=== PATIENT | female | born 1940 | race Caucasian/White ===

== ENCOUNTER 2018-03-11 10:01 | Outpatient (CLI) | payer MEDICARE, OTHER ==
[2018-03-11] VITALS (21 sets, daily range): BP systolic 114–155; BP diastolic 63–81
== END 2018-03-11 23:59 | disposition home or self-care (01) ==
LOC: CARD DIAG 10:01
PROVIDERS: ATTEND Internal Medicine Cardiovascular Disease
DX: R42 Dizziness and giddiness (principal)
CPT/HCPCS: 93660

== ENCOUNTER 2019-07-17 18:53 | Inpatient (IN) | payer MEDICARE, OTHER ==
[~2019-07-17] VITALS: Ht 147.3 cm; Wt 62.3 kg
[2019-07-17] MEDS ORDERED: normal saline 1000ml 1,000 ML IV ONE (19:25)
[2019-07-17 19:28] LABS: BASOPHILS # (AUTO) 0.1 X10'3 (0-0.2); BASOPHILS % (AUTO) 1.1 % (0-1); EOSINOPHILS # (AUTO) 0.1 X10'3 (0-0.9); HEMATOCRIT 32.6 % (35.0-45.0); HEMOGLOBIN 11.1 g/dl (12.0-16.0); LYMPHOCYTES % (AUTO) 31.9 % (21-51); MEAN CORPUSCULAR HEMOGLOBIN 34.1 PG (27.0-31.0); MEAN CORPUSCULAR HGB CONC 34.1 g/dL (33.0-36.5); MEAN PLATELET VOLUME 10.2 FL (7.4-10.4); MONOCYTES # (AUTO) 0.4 X10'3 (0-0.9); MONOCYTES % (AUTO) 4.2 % (2-12); NEUTROPHILS # (AUTO) 5.8 X10'3 (1.8-7.7); NEUTROPHILS % (AUTO) 61.8 % (42-75); PLATELET COUNT 230 X10'3 (140-440); RED BLOOD COUNT 3.26 X10'6 (4.20-5.60); RED CELL DISTRIBUTION WIDTH 15.4 % (11.5-14.5); WHITE BLOOD COUNT 9.4 X10'3 (4.5-11.0)
--- NOTE | 2019-07-17 19:30 | NUR ---
Spoke to Dr. Alvarado about protonix or tranexamic acid. At this time she does not believe they are necessary.
[2019-07-17 19:42] LABS: ALANINE AMINOTRANSFERASE 19 U/L (12-78); ALBUMIN 3.4 G/DL (3.4-5.0); ALBUMIN/GLOBULIN RATIO 1.1 (1.1-1.5); ALKALINE PHOSPHATASE 68 IU/L (46-116); ANION GAP 9 (8-16); ASPARTATE AMINO TRANSFERASE 19 U/L (10-37); BILIRUBIN,TOTAL 0.2 MG/DL (0.1-1.0); BLOOD UREA NITROGEN 17 MG/DL (7-18); BUN/CREATININE RATIO 17.2 (6.6-38.0); CALCIUM 8.6 MG/DL (8.5-10.1); CHLORIDE 108 MMOL/L (99-107); CREATININE 0.99 MG/DL (0.40-0.90); GLUCOSE 148 MG/DL (70-104); POTASSIUM 3.5 MMOL/L (3.5-5.1); SODIUM 141 MMOL/L (135-145); TOTAL CARBON DIOXIDE 24.5 MMOL/L (24-32); TOTAL PROTEIN 6.4 G/DL (6.4-8.2); eGFR 54 ML/MIN
[2019-07-17] MEDS ORDERED: iohexol 350MG/ML 100ml bottle IV ONE (19:55)
--- NOTE | 2019-07-17 20:13 | NUR ---
Spoke to Dr. Alvarado about patient's labs. She states that she wants to hold the blood transfusion for now and will repeat h&h in 4 hours to re-evaluate the need for a transfusion.
[2019-07-17] MEDS ORDERED: acetaminophen 325mg tablet PO PRN (21:20)
[2019-07-17] MEDS ORDERED: magnesium hydroxide 30ml (MOM) UD suspension PO PRN ×2 (21:20→23:15)
[2019-07-17] MEDS ORDERED: mag hydrox/Alum hydrox/simeth 30ml oral suspension PO PRN (21:20)
[2019-07-17] MEDS ORDERED: PEG 3350/Na sulf,bicarb,Cl/KCl oral sol 4 liter bottle PO ONE (21:20)
[2019-07-17] MEDS ORDERED: ondansetron/PF 4mg/2ml inj IV PRN (21:20)
--- NOTE | 2019-07-17 21:30 | NUR ---
DISCUSSED PT'S ONGOING DIZZINESS WHEN USING BSC. ORDER FOR FC RECEIVED.
--- NOTE | 2019-07-17 21:35 | NUR ---
Patient was assisted up to bedside commode at her request. Prior to transfer she stated that she felt strong enough to do so. She was able to get to the commode with minimal assistance. When on the commode she began to have a bowel movement and became dizzy and then lost conciousness while sitting on the commode. Patient was transferred from the commode to the bed with assistance from additional staff. Patient regained conciousness immediately after laying in the bed. Blood pressure in the 90s systolic. Blood transfusion initiated and Dr. Vigil notified.
[2019-07-17 21:36] VITALS: BP 94/44
[2019-07-17 21:40] LABS: BASOPHILS # (AUTO) 0.1 X10'3 (0-0.2); BASOPHILS % (AUTO) 0.8 % (0-1); EOSINOPHILS # (AUTO) 0.6 X10'3 (0-0.9); EOSINOPHILS % (AUTO) 4.7 % (0-6); HEMATOCRIT 24.7 % (35.0-45.0); HEMOGLOBIN 8.4 g/dl (12.0-16.0); LYMPHOCYTES # (AUTO) 1.2 X10'3 (1.1-4.8); LYMPHOCYTES % (AUTO) 8.7 % (21-51); MEAN CORPUSCULAR HEMOGLOBIN 34.2 PG (27.0-31.0); MEAN CORPUSCULAR HGB CONC 33.8 g/dL (33.0-36.5); MEAN CORPUSCULAR VOLUME 101.1 FL (78-98); MEAN PLATELET VOLUME 10.3 FL (7.4-10.4); MONOCYTES # (AUTO) 0.3 X10'3 (0-0.9); MONOCYTES % (AUTO) 1.9 % (2-12); NEUTROPHILS # (AUTO) 11.3 X10'3 (1.8-7.7); NEUTROPHILS % (AUTO) 83.9 % (42-75); PLATELET COUNT 170 X10'3 (140-440); RED BLOOD COUNT 2.45 X10'6 (4.20-5.60); RED CELL DISTRIBUTION WIDTH 15.6 % (11.5-14.5); WHITE BLOOD COUNT 13.5 X10'3 (4.5-11.0)
[2019-07-17] MEDS ORDERED: TRANEXAMIC ACID IN NACL,ISO-OS 100 ML IV ONE (21:40)
[2019-07-17 21:51] VITALS: BP 90/50
[2019-07-17] MEDS: normal saline 1000ml 1,000 ML IV SCH (22:16)
--- NOTE | 2019-07-17 22:20 | NUR ---
September PULL UP HAND at bedside evaluating the patient.
--- NOTE | 2019-07-17 23:10 | NUR ---
Patient arrived to floor, transferred to hospital bed without difficulty. at bedside. Patient alert/oriented x4, offers no complaints at this time. Vitals WNL. 2 RN skin check performed.
[2019-07-17] MEDS ORDERED: bisacodyl 10mg suppository rectal RC PRN (23:15)
[2019-07-17 23:17] LABS: TROPONIN I < 0.04 NG/ML (0.0-0.05)
[2019-07-17 23:20] VITALS: BP 97/50
[2019-07-17 23:26] VITALS: BP 97/50
[2019-07-17] MEDS ORDERED: pneumococcal 23-VAL P-sac vacc 25 mcg/0.5ml vial IMVAC ONE (23:45)
[2019-07-18] VITALS (37 sets, daily range): BP systolic 93–129; BP diastolic 35–69
--- NOTE | 2019-07-18 00:25 | NUR ---
Attempted to end the blood transfusion I started in the ED and accidently input the incorrect end time. The first blood transfusion ended at 2251 on 07/17/19. End transfusion vital signs documented on EMR.
[2019-07-18] MEDS: pantoprazole 40MG/NS 100ML BAG 100 ML IV SCH ×5 (01:08→21:00)
--- NOTE | 2019-07-18 02:26 | NUR ---
Patient stated she had to have BM, patient placed on bedpan. Patient reported feeling "very weak", then vomited large amount of emesis that was not able to be measured. Patient had 400ccs bloody stool. BP at this time 92/45. Patient has had about half of golytely drink. Zofran administered for nausea. Will continue to monitor patient closely.
[2019-07-18 03:30] LABS: MEAN CORPUSCULAR HEMOGLOBIN 32.8 PG (27.0-31.0); MEAN CORPUSCULAR HGB CONC 33.8 g/dL (33.0-36.5); MEAN CORPUSCULAR VOLUME 96.9 FL (78-98); MEAN PLATELET VOLUME 9.4 FL (7.4-10.4); PLATELET COUNT 231 X10'3 (140-440); RED BLOOD COUNT 2.13 X10'6 (4.20-5.60); RED CELL DISTRIBUTION WIDTH 19.6 % (11.5-14.5)
[2019-07-18 03:35] LABS: HEMATOCRIT 20.7 % (35.0-45.0)
[2019-07-18 04:11] LABS: CLARITY,URINE SLIGHTLY CLOUDY (Clear); COLOR,URINE YELLOW (Yellow); GLUCOSE, URINE NEGATIVE (Neg); KETONES,URINE NEGATIVE (Neg); LEUKOCYTE ESTERASE ,URINE NEGATIVE (Neg); NITRITES, URINE NEGATIVE (Neg); OCCULT BLOOD,URINE TRACE-INTACT (Neg); PROTEIN,URINE NEGATIVE (Neg); UROBILINOGEN,URINE 0.2 E.U/dL (0.2-1.0)
[2019-07-18 04:25] LABS: UA COLLECTION TYPE FOLEY CATH
[2019-07-18 04:27] LABS: BACTERIA,URINE FEW /HPF (Neg); RBC,URINE 0-2 /HPF (0-2); SQUAMOUS EPITHELIAL CELL,UR FEW /LPF (FEW); TRANSITIONAL EPI CELLS,URINE FEW /HPF
[2019-07-18 04:28] LABS: WBC CLUMPS,URINE FEW /HPF (NEGATIVE)
--- NOTE | 2019-07-18 06:17 | NUR ---
Problems reprioritized. Patient report given, questions answered & plan of care reviewed with Amanda SCHWARTZ.
--- NOTE | 2019-07-18 06:20 | NUR ---
Patient in room ICU 2042. I have received report from LANA Sanchez and had the opportunity to ask questions and assume patient care.
[2019-07-18 07:08] LABS: PARTIAL THROMBOPLASTIN TIME 24 SECONDS (22-32)
[2019-07-18] MEDS: normal saline 1000ml 1,000 ML IV SCH ×2 (07:18→15:44)
[2019-07-18 07:44] LABS: EOSINOPHILS # (AUTO) 0.3 X10'3 (0-0.9); HEMATOCRIT 24.5 % (35.0-45.0); HEMOGLOBIN 8.3 g/dl (12.0-16.0); LYMPHOCYTES # (AUTO) 0.9 X10'3 (1.1-4.8); MONOCYTES # (AUTO) 0.2 X10'3 (0-0.9); WHITE BLOOD COUNT 6.4 X10'3 (4.5-11.0)
[2019-07-18 07:46] LABS: BASOPHILS % (AUTO) 0.2 % (0-1); EOSINOPHILS % (AUTO) 4.3 % (0-6); LYMPHOCYTES % (AUTO) 13.9 % (21-51); MEAN CORPUSCULAR HEMOGLOBIN 31.4 PG (27.0-31.0); MEAN CORPUSCULAR HGB CONC 33.9 g/dL (33.0-36.5); MEAN CORPUSCULAR VOLUME 92.9 FL (78-98); MEAN PLATELET VOLUME 9.2 FL (7.4-10.4); MONOCYTES % (AUTO) 2.7 % (2-12); NEUTROPHILS # (AUTO) 5.1 X10'3 (1.8-7.7); NEUTROPHILS % (AUTO) 78.9 % (42-75); PLATELET COUNT 192 X10'3 (140-440); RED BLOOD COUNT 2.64 X10'6 (4.20-5.60); RED CELL DISTRIBUTION WIDTH 18.2 % (11.5-14.5)
[2019-07-18 07:51] LABS: ALBUMIN 2.5 G/DL (3.4-5.0); ANION GAP 6 (8-16); BLOOD UREA NITROGEN 14 MG/DL (7-18); BUN/CREATININE RATIO 23.7 (6.6-38.0); CALCIUM 6.7 MG/DL (8.5-10.1); CHLORIDE 112 MMOL/L (99-107); CREATININE 0.59 MG/DL (0.40-0.90); GLUCOSE 107 MG/DL (70-104); POTASSIUM 4.1 MMOL/L (3.5-5.1); SODIUM 144 MMOL/L (135-145); TOTAL CARBON DIOXIDE 26.3 MMOL/L (24-32); eGFR > 90 ML/MIN
[2019-07-18] MEDS: docusate sod 100mg capsule PO SCH ×2 (08:00→19:31)
[2019-07-18] MEDS ORDERED: FLU VACC QS2019-20 36MOS UP/PF 60 MCG/0.5 ML SYRINGE IMVAC ONE (10:00)
[2019-07-18] MEDS ORDERED: ATOR20TA PO (10:40)
[2019-07-18] MEDS ORDERED: NO HOME MEDS (11:12)
--- NOTE | 2019-07-18 12:47 | NUR ---
Paged GI lab re pt's case status to provide update to pt's family.
[2019-07-18 14:36] LABS: MEAN CORPUSCULAR HEMOGLOBIN 31.9 PG (27.0-31.0); MEAN CORPUSCULAR HGB CONC 34.3 g/dL (33.0-36.5); MEAN CORPUSCULAR VOLUME 92.9 FL (78-98); MEAN PLATELET VOLUME 9.3 FL (7.4-10.4); PLATELET COUNT 162 X10'3 (140-440); RED BLOOD COUNT 2.17 X10'6 (4.20-5.60); RED CELL DISTRIBUTION WIDTH 18.4 % (11.5-14.5); WHITE BLOOD COUNT 6.5 X10'3 (4.5-11.0)
[2019-07-18 14:38] LABS: HEMOGLOBIN 6.9 g/dl (12.0-16.0)
[2019-07-18 14:39] LABS: HEMATOCRIT 20.2 % (35.0-45.0)
--- NOTE | 2019-07-18 14:45 | NUR ---
Dr. Zuniga notified via telephone of critical H&H. Order received to transfuse 2 units [facility] now.
--- NOTE | 2019-07-18 15:03 | NUR ---
Malnutrition consult. patient presents s/p colonoscopy and polyp removal with rectal bleeding. Received PRBC in ED. No current PO intake as patient is on clear liquid diet. Per H&P patient reports drinking at least one beer a day and family reports it is at least two beers and sometimes wine. Patient not available at bedside for bedside interview and assessment by RD, will follow up with patient tomorrow. Addendum: 07/18/19 at [address] Amended: Links added.
[2019-07-18] MEDS ORDERED: fentaNYL/PF 50MCG/1 ML 2ML syringe ONE (15:35)
[2019-07-18] MEDS ORDERED: epiNEPHrine 0.1mg/ml 10ml syringe ONE (15:36)
[2019-07-18] MEDS ORDERED: MIDAZolam 5mg/5ml vial ONE (15:36)
--- NOTE | 2019-07-18 18:29 | NUR ---
Problems reprioritized. Patient report given, questions answered & plan of care reviewed with LANA Sanchez.
--- NOTE | 2019-07-18 18:30 | NUR ---
Patient in room ICU 2042. I have received report from Amanda SCHWARTZ and had the opportunity to ask questions and assume patient care. Patient resting in bed comfortably with eyes closed, offers no complaints at this time. Vitals WNL. Will continue to monitor patient.
[2019-07-18 19:00] LABS: BASOPHILS # (AUTO) 0.1 X10'3 (0-0.2); BASOPHILS % (AUTO) 1.2 % (0-1); EOSINOPHILS # (AUTO) 0.3 X10'3 (0-0.9); EOSINOPHILS % (AUTO) 4.1 % (0-6); HEMATOCRIT 27.5 % (35.0-45.0); HEMOGLOBIN 9.3 g/dl (12.0-16.0); LYMPHOCYTES # (AUTO) 1.9 X10'3 (1.1-4.8); LYMPHOCYTES % (AUTO) 27.9 % (21-51); MEAN CORPUSCULAR HEMOGLOBIN 30.9 PG (27.0-31.0); MEAN CORPUSCULAR HGB CONC 33.7 g/dL (33.0-36.5); MEAN CORPUSCULAR VOLUME 91.7 FL (78-98); MEAN PLATELET VOLUME 9.5 FL (7.4-10.4); MONOCYTES # (AUTO) 0.3 X10'3 (0-0.9); MONOCYTES % (AUTO) 4.4 % (2-12); NEUTROPHILS # (AUTO) 4.3 X10'3 (1.8-7.7); NEUTROPHILS % (AUTO) 62.4 % (42-75); PLATELET COUNT 144 X10'3 (140-440); RED CELL DISTRIBUTION WIDTH 17.6 % (11.5-14.5); WHITE BLOOD COUNT 6.9 X10'3 (4.5-11.0)
[2019-07-18 23:03] LABS: HEMATOCRIT 26.2 % (35.0-45.0); MEAN CORPUSCULAR HEMOGLOBIN 31.2 PG (27.0-31.0); MEAN CORPUSCULAR HGB CONC 34.5 g/dL (33.0-36.5); MEAN CORPUSCULAR VOLUME 90.4 FL (78-98); MEAN PLATELET VOLUME 9.1 FL (7.4-10.4); PLATELET COUNT 140 X10'3 (140-440); RED CELL DISTRIBUTION WIDTH 16.9 % (11.5-14.5); WHITE BLOOD COUNT 6.2 X10'3 (4.5-11.0)
[2019-07-19] VITALS (15 sets, daily range): BP systolic 99–137; BP diastolic 45–81
[2019-07-19] MEDS: pantoprazole 40MG/NS 100ML BAG 100 ML IV SCH ×3 (01:00→07:00)
[2019-07-19] MEDS: normal saline 1000ml 1,000 ML IV SCH (02:05)
[2019-07-19 05:26] LABS: ALBUMIN 2.3 G/DL (3.4-5.0); ANION GAP 5 (8-16); BLOOD UREA NITROGEN 5 MG/DL (7-18); BUN/CREATININE RATIO 9.1 (6.6-38.0); CALCIUM 6.7 MG/DL (8.5-10.1); CHLORIDE 113 MMOL/L (99-107); CREATININE 0.55 MG/DL (0.40-0.90); GLUCOSE 90 MG/DL (70-104); POTASSIUM 3.1 MMOL/L (3.5-5.1); SODIUM 144 MMOL/L (135-145); TOTAL CARBON DIOXIDE 25.9 MMOL/L (24-32); eGFR > 90 ML/MIN
[2019-07-19 05:38] LABS: HEMOGLOBIN 9.4 g/dl (12.0-16.0)
[2019-07-19 05:41] LABS: HEMATOCRIT 26.7 % (35.0-45.0); MEAN CORPUSCULAR HEMOGLOBIN 31.7 PG (27.0-31.0); MEAN CORPUSCULAR HGB CONC 35.2 g/dL (33.0-36.5); MEAN CORPUSCULAR VOLUME 90.2 FL (78-98); MEAN PLATELET VOLUME 9.7 FL (7.4-10.4); PLATELET COUNT 146 X10'3 (140-440); RED BLOOD COUNT 2.96 X10'6 (4.20-5.60); RED CELL DISTRIBUTION WIDTH 17.3 % (11.5-14.5)
[2019-07-19] MEDS ORDERED: potassium CL 10mEq/100ml bag 100 ML IV PRN (06:10)
[2019-07-19] MEDS ORDERED: potassium Cl 20 mEq SR tablet PO PRN (06:10)
--- NOTE | 2019-07-19 06:22 | NUR ---
Problems reprioritized. Patient report given, questions answered & plan of care reviewed with Geetha SCHWARTZ.
[2019-07-19] MEDS: K and/or MAG REPLACEMENT MC SCH (07:38)
[2019-07-19] MEDS: docusate sod 100mg capsule PO SCH ×2 (08:00→19:57)
[2019-07-19] MEDS: potassium Cl 20 mEq SR tablet PO PRN ×3 (08:47→18:19)
[2019-07-19 08:49] LABS: TOTAL CELLS COUNTED 100
[2019-07-19 08:51] LABS: ANISOCYTOSIS 1+; PLATELET ESTIMATE NORMAL; SMUDGE CELLS 2+
--- NOTE | 2019-07-19 13:40 | NUR ---
Malnutrition consult. patient presents s/p colonoscopy and polyp removal with rectal bleeding. Received PRBC in ED. No current PO intake as patient is on clear liquid diet. Per H&P patient reports drinking at least one beer a day and family reports it is at least two beers and sometimes wine. Visited patient at bedside, she appears well nourished. Reports UBW of 140 lbs, current weight 136 lbs, reports great appetite however has not been able to eat much d/t clear liquid diet and three colonoscopys this month. Pt eager for diet advancement and has no concerns for weight. No malnutrition at this time. Addendum: 07/19/19 at [address] Amended: Links added.
--- NOTE | 2019-07-19 17:06 | NUR ---
pt transferred from ICU to PCU rm 3020A. This RN followed pt and will continue to care for pt until shift change. Pt oriented to room and connected to tele.
--- NOTE | 2019-07-19 18:44 | NUR ---
Patient in room PCU 3027. I have received report from Geetha SCHWARTZ and had the opportunity to ask questions and assume patient care.
[2019-07-20 02:00] VITALS: BP 116/51
[2019-07-20 05:09] LABS: BASOPHILS # (AUTO) 0.2 X10'3 (0-0.2); BASOPHILS % (AUTO) 3.2 % (0-1); EOSINOPHILS % (AUTO) 0.3 % (0-6); HEMATOCRIT 27.4 % (35.0-45.0); HEMOGLOBIN 9.5 g/dl (12.0-16.0); LYMPHOCYTES # (AUTO) 1.7 X10'3 (1.1-4.8); LYMPHOCYTES % (AUTO) 28.2 % (21-51); MEAN CORPUSCULAR HEMOGLOBIN 31.3 PG (27.0-31.0); MEAN CORPUSCULAR HGB CONC 34.6 g/dL (33.0-36.5); MEAN CORPUSCULAR VOLUME 90.5 FL (78-98); MEAN PLATELET VOLUME 8.8 FL (7.4-10.4); MONOCYTES # (AUTO) 0.3 X10'3 (0-0.9); MONOCYTES % (AUTO) 4.9 % (2-12); NEUTROPHILS # (AUTO) 3.8 X10'3 (1.8-7.7); NEUTROPHILS % (AUTO) 63.4 % (42-75); PLATELET COUNT 161 X10'3 (140-440); RED BLOOD COUNT 3.02 X10'6 (4.20-5.60); RED CELL DISTRIBUTION WIDTH 16.9 % (11.5-14.5)
[2019-07-20 05:20] LABS: ALBUMIN 2.3 G/DL (3.4-5.0); ANION GAP 5 (8-16); BLOOD UREA NITROGEN 2 MG/DL (7-18); BUN/CREATININE RATIO 3.8 (6.6-38.0); CALCIUM 7.4 MG/DL (8.5-10.1); CHLORIDE 112 MMOL/L (99-107); CREATININE 0.53 MG/DL (0.40-0.90); GLUCOSE 90 MG/DL (70-104); POTASSIUM 3.5 MMOL/L (3.5-5.1); SODIUM 144 MMOL/L (135-145); TOTAL CARBON DIOXIDE 27.3 MMOL/L (24-32); eGFR > 90 ML/MIN
[2019-07-20 06:00] VITALS: BP 128/57
--- NOTE | 2019-07-20 06:25 | NUR ---
Patient in room PCU 3027. I have received report from Grecia SCHWARTZ and had the opportunity to ask questions and assume patient care.
--- NOTE | 2019-07-20 06:31 | NUR ---
Problems reprioritized. Patient report given, questions answered & plan of care reviewed with Dave SCHWARTZ.
[2019-07-20] MEDS: pantoprazole 40mg Tablet.DR PO SCH (07:34)
[2019-07-20] MEDS: docusate sod 100mg capsule PO SCH ×2 (07:34→19:38)
[2019-07-20] MEDS: K and/or MAG REPLACEMENT MC SCH (08:00)
[2019-07-20 11:00] VITALS: BP 123/50
[2019-07-20 15:00] VITALS: BP 127/60
--- NOTE | 2019-07-20 18:20 | NUR ---
Problems reprioritized. Patient report given, questions answered & plan of care reviewed with Alexis RN.
--- NOTE | 2019-07-20 18:45 | NUR ---
Patient in room PCU 3027. I have received report from Dave Ford RN and had the opportunity to ask questions and assume patient care.
[2019-07-20 19:00] VITALS: BP 127/44
[2019-07-20 23:00] VITALS: BP 129/42
[2019-07-21 03:00] VITALS: BP 119/49
[2019-07-21 05:36] LABS: BASOPHILS # (AUTO) 0.2 X10'3 (0-0.2); EOSINOPHILS # (AUTO) 0.1 X10'3 (0-0.9); HEMOGLOBIN 9.3 g/dl (12.0-16.0); LYMPHOCYTES # (AUTO) 1.4 X10'3 (1.1-4.8); LYMPHOCYTES % (AUTO) 28.3 % (21-51); MEAN PLATELET VOLUME 9.8 FL (7.4-10.4); MONOCYTES # (AUTO) 0.2 X10'3 (0-0.9); WHITE BLOOD COUNT 5.1 X10'3 (4.5-11.0)
[2019-07-21 05:38] LABS: BASOPHILS % (AUTO) 3.1 % (0-1); EOSINOPHILS % (AUTO) 1.6 % (0-6); HEMATOCRIT 27.1 % (35.0-45.0); MEAN CORPUSCULAR HEMOGLOBIN 31.2 PG (27.0-31.0); MEAN CORPUSCULAR HGB CONC 34.5 g/dL (33.0-36.5); MEAN CORPUSCULAR VOLUME 90.5 FL (78-98); NEUTROPHILS # (AUTO) 3.2 X10'3 (1.8-7.7); PLATELET COUNT 167 X10'3 (140-440); RED BLOOD COUNT 2.99 X10'6 (4.20-5.60); RED CELL DISTRIBUTION WIDTH 16.7 % (11.5-14.5)
[2019-07-21 06:00] VITALS: BP 157/55
[2019-07-21 06:07] LABS: ALBUMIN 2.4 G/DL (3.4-5.0); ANION GAP 5 (8-16); BLOOD UREA NITROGEN 2 MG/DL (7-18); BUN/CREATININE RATIO 3.8 (6.6-38.0); CALCIUM 7.7 MG/DL (8.5-10.1); CHLORIDE 111 MMOL/L (99-107); CREATININE 0.52 MG/DL (0.40-0.90); GLUCOSE 89 MG/DL (70-104); POTASSIUM 3.4 MMOL/L (3.5-5.1); SODIUM 145 MMOL/L (135-145); TOTAL CARBON DIOXIDE 29.2 MMOL/L (24-32); eGFR > 90 ML/MIN
--- NOTE | 2019-07-21 06:49 | NUR ---
Problems reprioritized. Patient report given, questions answered & plan of care reviewed with Dexter Benitez RN.
--- NOTE | 2019-07-21 06:49 | NUR ---
Patient in room PCU 3027. I have received report from LANA Espinoza and had the opportunity to ask questions and assume patient care.
[2019-07-21] MEDS: K and/or MAG REPLACEMENT MC SCH (07:22)
[2019-07-21] MEDS: pantoprazole 40mg Tablet.DR PO SCH (07:25)
[2019-07-21] MEDS: docusate sod 100mg capsule PO SCH (07:25)
[2019-07-21] MEDS: potassium Cl 20 mEq SR tablet PO PRN ×2 (07:25→12:31)
[2019-07-21 11:00] VITALS: BP 123/69
[2019-07-21] MEDS ORDERED: PANT40TA4 PO (15:17)
[2019-07-21] MEDS ORDERED: POTA20TA10 PO (15:17)
[2019-07-21] MEDS ORDERED: FERR324T4 PO (15:17)
--- NOTE | 2019-07-21 16:13 | NUR ---
Patient discharged. PIV taken off and tele returned. Flu vaccine given. Refused Pnuemonia vaccine. Meds called into [facility] on [address]. Educated on meds, anemia, and follow-up. Patient left with belongings and spouse gave patient a ride home. Medicare DC rights and DC papers signed. Wristband cut off and blood bank band. Stable for DC per MD.
[2019-07-22 08:13] LABS: CANCER ANTIGEN 125 12.4 U/mL (0.0-38.1); CARCINOEMBRYONIC ANTIGEN 1.9 ng/mL (0.0-4.7)
[2019-07-22] MEDS ORDERED: FLU VACC QS 2019-20 (6 MOS UP) 60 MCG/0.5 ML VIAL IMVAC ONE (10:00)
== END 2019-07-21 16:05 | disposition home or self-care (01) | DRG 920 ==
LOC: ER 18:55 → EDBEDREQTM 22:24 → EDBEDREQSVC 22:24 → ICU 2S 23:33 → CMPBEDREQ 07-18 19:49 → PCU 3S 07-19 16:02
PROVIDERS: ADMIT Hospitalist; ATTEND Internal Medicine
PROC: B32T1ZZ Computerized Tomography (CT Scan) of Left Pulmonary Artery using Low Osmolar Contrast (ICD-10-PCS; 2019-07-17)
PROC: 30233R1 Transfusion of Nonautologous Platelets into Peripheral Vein, Percutaneous Approach (ICD-10-PCS; 2019-07-17)
PROC: 30233N1 Transfusion of Nonautologous Red Blood Cells into Peripheral Vein, Percutaneous Approach (ICD-10-PCS; 2019-07-17)
PROC: B3201ZZ Computerized Tomography (CT Scan) of Thoracic Aorta using Low Osmolar Contrast (ICD-10-PCS; 2019-07-17)
PROC: B32S1ZZ Computerized Tomography (CT Scan) of Right Pulmonary Artery using Low Osmolar Contrast (ICD-10-PCS; 2019-07-17)
PROC: B4201ZZ Computerized Tomography (CT Scan) of Abdominal Aorta using Low Osmolar Contrast (ICD-10-PCS; 2019-07-17)
PROC: B4241ZZ Computerized Tomography (CT Scan) of Superior Mesenteric Artery using Low Osmolar Contrast (ICD-10-PCS; 2019-07-17)
PROC: B4281ZZ Computerized Tomography (CT Scan) of Bilateral Renal Arteries using Low Osmolar Contrast (ICD-10-PCS; 2019-07-17)
PROC: B42C1ZZ Computerized Tomography (CT Scan) of Pelvic Arteries using Low Osmolar Contrast (ICD-10-PCS; 2019-07-17)
PROC: B4211ZZ Computerized Tomography (CT Scan) of Celiac Artery using Low Osmolar Contrast (ICD-10-PCS; 2019-07-17)
PROC: 0W3P8ZZ Control Bleeding in Gastrointestinal Tract, Via Natural or Artificial Opening Endoscopic (ICD-10-PCS; principal; 2019-07-18)
PROC: 30233N1 Transfusion of Nonautologous Red Blood Cells into Peripheral Vein, Percutaneous Approach (ICD-10-PCS; 2019-07-18)
PROC: 3E02340 Introduction of Influenza Vaccine into Muscle, Percutaneous Approach (ICD-10-PCS; 2019-07-21)
DX: K91.840 Postprocedural hemorrhage of a digestive system organ or structure following a digestive system procedure (principal); D62 Acute posthemorrhagic anemia; K21.0 Gastro-esophageal reflux disease with esophagitis; M19.90 Unspecified osteoarthritis, unspecified site; Y83.8 Other surgical procedures as the cause of abnormal reaction of the patient, or of later complication, without mention of misadventure at the time of the procedure; K57.30 Diverticulosis of large intestine without perforation or abscess without bleeding; K62.1 Rectal polyp; Z23 Encounter for immunization; Z90.710 Acquired absence of both cervix and uterus; Y92.89 Other specified places as the place of occurrence of the external cause; Z79.899 Other long term (current) drug therapy
CPT/HCPCS: 36415; 45385; 74177; 80048; 80053; 81001; 82378; 83605; 84439; 84443; 84484; 85025; 85027; 85384; 85610; 85730; 86301; 86304; 86885; 86900; 86901; 86920; 87081; 87088; 93005; 96365; 99152; 99153; 99291; C9113; G0378; J0171; J2250; J2405; J3010; P9016; P9035; Q2037; Q9967

== ENCOUNTER 2019-07-23 17:42 | Emergency (ER) | payer MEDICARE, OTHER ==
[~2019-07-23] VITALS: Ht 147.3 cm; Wt 62.3 kg
[~2019-07-23 17:42] MED LIST: FERR324T4 PO; PANT40TA4 PO; POTA20TA10 PO
[2019-07-23 19:27] LABS: ALANINE AMINOTRANSFERASE 18 U/L (12-78); ALBUMIN 3.3 G/DL (3.4-5.0); ALKALINE PHOSPHATASE 74 IU/L (46-116); ANION GAP 6 (8-16); ASPARTATE AMINO TRANSFERASE 14 U/L (10-37); BILIRUBIN,TOTAL 0.3 MG/DL (0.1-1.0); BLOOD UREA NITROGEN 4 MG/DL (7-18); BUN/CREATININE RATIO 6.3 (6.6-38.0); CALCIUM 8.4 MG/DL (8.5-10.1); CHLORIDE 109 MMOL/L (99-107); CREATININE 0.63 MG/DL (0.40-0.90); GLUCOSE 81 MG/DL (70-104); POTASSIUM 4.4 MMOL/L (3.5-5.1); SODIUM 145 MMOL/L (135-145); TOTAL CARBON DIOXIDE 30.3 MMOL/L (24-32); TOTAL PROTEIN 6.5 G/DL (6.4-8.2); eGFR > 90 ML/MIN
[2019-07-23 20:19] LABS: BASOPHILS # (AUTO) 0.2 X10'3 (0-0.2); EOSINOPHILS # (AUTO) 0.3 X10'3 (0-0.9); EOSINOPHILS % (AUTO) 6.1 % (0-6); HEMATOCRIT 31.4 % (35.0-45.0); HEMOGLOBIN 10.7 g/dl (12.0-16.0); LYMPHOCYTES # (AUTO) 1.6 X10'3 (1.1-4.8); MEAN CORPUSCULAR HEMOGLOBIN 31.8 PG (27.0-31.0); MEAN CORPUSCULAR HGB CONC 34.1 g/dL (33.0-36.5); MEAN CORPUSCULAR VOLUME 93.1 FL (78-98); MEAN PLATELET VOLUME 9.8 FL (7.4-10.4); MONOCYTES # (AUTO) 0.3 X10'3 (0-0.9); MONOCYTES % (AUTO) 5.4 % (2-12); NEUTROPHILS # (AUTO) 3.2 X10'3 (1.8-7.7); NEUTROPHILS % (AUTO) 56.5 % (42-75); PLATELET COUNT 206 X10'3 (140-440); RED BLOOD COUNT 3.37 X10'6 (4.20-5.60); RED CELL DISTRIBUTION WIDTH 16.7 % (11.5-14.5); WHITE BLOOD COUNT 5.6 X10'3 (4.5-11.0)
[2019-07-23 20:26] LABS: ANISOCYTOSIS 1+; PLATELET ESTIMATE NORMAL; TOTAL CELLS COUNTED 100
[2019-07-23 20:27] LABS: LARGE PLATELETS MODERATE
[2019-07-23 20:44] VITALS: BP 122/62
== END 2019-07-23 21:11 | disposition home or self-care (01) ==
LOC: ER 17:43
DX: K92.1 Melena (principal); M19.90 Unspecified osteoarthritis, unspecified site; F10.99 Alcohol use, unspecified with unspecified alcohol-induced disorder; Z90.710 Acquired absence of both cervix and uterus; Z98.890 Other specified postprocedural states; Z79.899 Other long term (current) drug therapy; Y90.9 Presence of alcohol in blood, level not specified
CPT/HCPCS: 36415; 80053; 85025; 85610; 99283

== ENCOUNTER 2021-09-13 18:31 | Emergency (ER) | payer MEDICARE, OTHER ==
[~2021-09-13] VITALS: Ht 147.3 cm; Wt 60.0 kg
[~2021-09-13 18:31] MED LIST changes: -PANT40TA4 PO; +PANT40TA54 PO; +POTA-197 PO; -POTA20TA10 PO
[2021-09-13 18:57] VITALS: BP 111/58
[2021-09-13] MEDS ORDERED: LIDOcaine 5% patch TP STA (19:09)
[2021-09-13] MEDS ORDERED: ondansetron 4mg rapidly disintigrating tab PO ONE (19:10)
[2021-09-13] MEDS ORDERED: HYDROcodone/acetaminophen 10/325mg tab PO ONE (19:10)
[2021-09-13] MEDS ORDERED: ONDA4TAB6 PO (19:16)
[2021-09-13] MEDS ORDERED: HYDR-3972 PO (19:16)
== END 2021-09-13 21:09 | disposition home or self-care (01) ==
LOC: ER 18:32
DX: M54.50 Low back pain, unspecified (principal); M48.54XA Collapsed vertebra, not elsewhere classified, thoracic region, initial encounter for fracture; M19.90 Unspecified osteoarthritis, unspecified site; Z90.710 Acquired absence of both cervix and uterus; Z98.890 Other specified postprocedural states; Z72.89 Other problems related to lifestyle; Z79.899 Other long term (current) drug therapy; W18.30XA Fall on same level, unspecified, initial encounter; Y93.89 Activity, other specified; Y92.89 Other specified places as the place of occurrence of the external cause; Y99.8 Other external cause status
CPT/HCPCS: 72131; 99284

== ENCOUNTER 2021-10-25 06:17 | Emergency (ER) | payer MEDICARE, OTHER ==
[~2021-10-25] VITALS: Ht 177.8 cm; Wt 61.0 kg
[~2021-10-25 06:17] MED LIST changes: +ONDA4TAB6 PO
[2021-10-25 06:38] VITALS: BP 102/62
[2021-10-25] MEDS ORDERED: ondansetron 4mg rapidly disintigrating tab PO ONE (07:10)
[2021-10-25] MEDS ORDERED: normal saline 1000ml 1,000 ML IV ONE (08:20)
[2021-10-25 08:54] LABS: BASOPHILS # (AUTO) 0.1 X10'3 (0-0.2); EOSINOPHILS # (AUTO) 0.1 X10'3 (0-0.9); LYMPHOCYTES # (AUTO) 0.9 X10'3 (1.1-4.8); MONOCYTES # (AUTO) 0.1 X10'3 (0-0.9)
[2021-10-25 08:56] LABS: BASOPHILS % (AUTO) 1.8 % (0-1); EOSINOPHILS % (AUTO) 2.6 % (0-6); HEMATOCRIT 35.8 % (35.0-45.0); HEMOGLOBIN 12.2 g/dl (12.0-16.0); LYMPHOCYTES % (AUTO) 17.6 % (21-51); MEAN CORPUSCULAR HEMOGLOBIN 35.6 PG (27.0-31.0); MEAN CORPUSCULAR HGB CONC 34.2 g/dL (33.0-36.5); MEAN CORPUSCULAR VOLUME 104.2 FL (78-98); MEAN PLATELET VOLUME 9.9 FL (7.4-10.4); MONOCYTES % (AUTO) 2.5 % (2-12); NEUTROPHILS # (AUTO) 3.8 X10'3 (1.8-7.7); NEUTROPHILS % (AUTO) 75.5 % (42-75); PLATELET COUNT 202 X10'3 (140-440); RED BLOOD COUNT 3.44 X10'6 (4.20-5.60); RED CELL DISTRIBUTION WIDTH 15.7 % (11.5-14.5); WHITE BLOOD COUNT 5.1 X10'3 (4.5-11.0)
[2021-10-25 09:06] LABS: ALANINE AMINOTRANSFERASE 21 U/L (12-78); ALBUMIN 3.8 G/DL (3.4-5.0); ALBUMIN/GLOBULIN RATIO 1.2 (1.1-1.5); ALKALINE PHOSPHATASE 74 IU/L (46-116); ANION GAP 8 (8-16); ASPARTATE AMINO TRANSFERASE 18 U/L (10-37); BILIRUBIN,TOTAL 0.4 MG/DL (0.1-1.0); BLOOD UREA NITROGEN 12 MG/DL (7-18); CALCIUM 8.4 MG/DL (8.5-10.1); CHLORIDE 108 MMOL/L (99-107); GLUCOSE 116 MG/DL (70-104); SODIUM 144 MMOL/L (135-145); TOTAL CARBON DIOXIDE 28.4 MMOL/L (24-32); TOTAL PROTEIN 6.9 G/DL (6.4-8.2); eGFR > 90 ML/MIN
[2021-10-25] MEDS ORDERED: iohexol 350MG/ML 100ml bottle IV ONE (09:48)
[2021-10-25] MEDS ORDERED: meclizine 12.5mg tablet PO ONE (11:00)
[2021-10-25] MEDS ORDERED: proCHLORperazine 10 MG/2 ml inj IV ONE (11:05)
[2021-10-25] MEDS ORDERED: MECL-226 PO (12:36)
[2021-10-25] MEDS ORDERED: ONDA-103 PO (12:36)
== END 2021-10-25 12:55 | disposition home or self-care (01) ==
LOC: ER 06:17
DX: H81.10 Benign paroxysmal vertigo, unspecified ear (principal); Z20.822 Contact with and (suspected) exposure to COVID-19; R53.1 Weakness; R11.2 Nausea with vomiting, unspecified; M19.90 Unspecified osteoarthritis, unspecified site; Z98.890 Other specified postprocedural states; Z90.710 Acquired absence of both cervix and uterus; Z72.89 Other problems related to lifestyle
CPT/HCPCS: 70450; 70496; 70498; 71045; 80053; 83880; 84484; 85025; 87635; 93005; 96361; 96374; 99285; C9803; J0780; J7030; J8597; Q9967

== ENCOUNTER 2022-07-22 12:50 | Emergency (ER) | payer MEDICARE, OTHER ==
[~2022-07-22] VITALS: Ht 147.3 cm; Wt 61.4 kg
[~2022-07-22 12:50] MED LIST changes: +MECL-226 PO; +ONDA-103 PO
[2022-07-22 12:59] VITALS: BP 118/54
[2022-07-22 13:27] LABS: BASOPHILS % (AUTO) 0.7 % (0-1); LYMPHOCYTES # (AUTO) 1.8 X10'3 (1.1-4.8); MONOCYTES # (AUTO) 0.2 X10'3 (0-0.9); NEUTROPHILS # (AUTO) 3.4 X10'3 (1.8-7.7); RED BLOOD COUNT 3.54 X10'6 (4.20-5.60)
[2022-07-22 13:29] LABS: EOSINOPHILS % (AUTO) 0.5 % (0-6); HEMATOCRIT 36.6 % (35.0-45.0); HEMOGLOBIN 12.3 g/dl (12.0-16.0); LYMPHOCYTES % (AUTO) 32.5 % (21-51); MEAN CORPUSCULAR HEMOGLOBIN 34.8 PG (27.0-31.0); MEAN CORPUSCULAR HGB CONC 33.6 g/dL (33.0-36.5); MEAN CORPUSCULAR VOLUME 103.4 FL (78-98); MEAN PLATELET VOLUME 9.6 FL (7.4-10.4); MONOCYTES % (AUTO) 4.4 % (2-12); NEUTROPHILS % (AUTO) 61.9 % (42-75); PLATELET COUNT 245 X10'3 (140-440); RED CELL DISTRIBUTION WIDTH 17.4 % (11.5-14.5); WHITE BLOOD COUNT 5.4 X10'3 (4.5-11.0)
[2022-07-22 13:44] LABS: ALANINE AMINOTRANSFERASE 22 U/L (12-78); ALBUMIN 4.1 G/DL (3.4-5.0); ALBUMIN/GLOBULIN RATIO 1.2 (1.1-1.5); ALKALINE PHOSPHATASE 57 IU/L (46-116); ANION GAP 8 (8-16); ASPARTATE AMINO TRANSFERASE 25 U/L (10-37); BILIRUBIN,TOTAL 0.4 MG/DL (0.1-1.0); BLOOD UREA NITROGEN 10 MG/DL (7-18); BUN/CREATININE RATIO 15.9 (6.6-38.0); CALCIUM 9.1 MG/DL (8.5-10.1); CHLORIDE 106 MMOL/L (99-107); CREATININE 0.63 MG/DL (0.40-0.90); GLUCOSE 84 MG/DL (70-104); SODIUM 144 MMOL/L (135-145); TOTAL CARBON DIOXIDE 30.3 MMOL/L (24-32); TOTAL PROTEIN 7.4 G/DL (6.4-8.2); eGFR > 90 ML/MIN
[2022-07-22] MEDS ORDERED: mag hydrox/Alum hydrox/simeth 30ml oral suspension PO ONE (18:20)
[2022-07-22] MEDS ORDERED: LIDOcaine Viscous 15ml cup MM ONE (18:20)
[2022-07-22] MEDS ORDERED: pantoprazole 40mg Tablet.DR PO ONE (18:20)
--- NOTE | 2022-07-22 18:32 | NUR ---
po med x3 given
[2022-07-22 18:53] LABS: LIPASE 50 U/L (73-393)
[2022-07-22] MEDS ORDERED: PANT20TA18 PO (19:03)
[2022-07-22] MEDS ORDERED: ketorolac tromethamine 15mg/ml inj. IM ONE (19:20)
== END 2022-07-22 19:45 | disposition home or self-care (01) ==
LOC: ER 12:51
DX: R10.13 Epigastric pain (principal); Z90.49 Acquired absence of other specified parts of digestive tract; Z79.899 Other long term (current) drug therapy; Z98.890 Other specified postprocedural states
CPT/HCPCS: 36415; 71045; 80053; 83690; 83880; 84484; 85025; 93005; 96372; 99285; J1885

== ENCOUNTER 2022-09-14 10:13 | Emergency (ER) | payer MEDICARE, OTHER ==
[~2022-09-14] VITALS: Ht 147.3 cm; Wt 59.0 kg
[~2022-09-14 10:13] MED LIST changes: +PANT20TA18 PO
--- NOTE | 2022-09-14 10:48 | NUR ---
spoke with PA re: pts cheif complaint. verbal order for basic labs.
[2022-09-14 11:26] LABS: EOSINOPHILS # (AUTO) 0.1 X10'3 (0-0.9); HEMOGLOBIN 11.1 g/dl (12.0-16.0); MONOCYTES # (AUTO) 0.2 X10'3 (0-0.9); WHITE BLOOD COUNT 4.9 X10'3 (4.5-11.0)
[2022-09-14 11:27] LABS: BASOPHILS # (AUTO) 0.1 X10'3 (0-0.2); EOSINOPHILS % (AUTO) 2.3 % (0-6); HEMATOCRIT 32.6 % (35.0-45.0); LYMPHOCYTES # (AUTO) 1.3 X10'3 (1.1-4.8); MEAN CORPUSCULAR HEMOGLOBIN 34.9 PG (27.0-31.0); MEAN CORPUSCULAR HGB CONC 34.1 g/dL (33.0-36.5); MEAN CORPUSCULAR VOLUME 102.6 FL (78-98); MEAN PLATELET VOLUME 9.3 FL (7.4-10.4); MONOCYTES % (AUTO) 3.7 % (2-12); NEUTROPHILS # (AUTO) 3.3 X10'3 (1.8-7.7); PLATELET COUNT 176 X10'3 (140-440); RED BLOOD COUNT 3.18 X10'6 (4.20-5.60); RED CELL DISTRIBUTION WIDTH 17.9 % (11.5-14.5)
[2022-09-14 11:29] LABS: ALANINE AMINOTRANSFERASE 19 U/L (12-78); ALBUMIN 3.8 G/DL (3.4-5.0); ALBUMIN/GLOBULIN RATIO 1.3 (1.1-1.5); ALKALINE PHOSPHATASE 54 IU/L (46-116); ANION GAP 6 (8-16); ASPARTATE AMINO TRANSFERASE 21 U/L (10-37); BILIRUBIN,TOTAL 0.4 MG/DL (0.1-1.0); BLOOD UREA NITROGEN 14 MG/DL (7-18); BUN/CREATININE RATIO 24.1 (6.6-38.0); CHLORIDE 105 MMOL/L (99-107); CREATININE 0.58 MG/DL (0.40-0.90); GLUCOSE 103 MG/DL (70-104); POTASSIUM 4.1 MMOL/L (3.5-5.1); SODIUM 142 MMOL/L (135-145); TOTAL CARBON DIOXIDE 31.1 MMOL/L (24-32); TOTAL PROTEIN 6.8 G/DL (6.4-8.2); eGFR > 90 ML/MIN
[2022-09-14] MEDS ORDERED: normal saline 1000ml 1,000 ML IV ONE (14:15)
[2022-09-14] MEDS ORDERED: meclizine 12.5mg tablet PO ONE (14:45)
[2022-09-14 15:15] LABS: COLOR,URINE YELLOW (Yellow); GLUCOSE, URINE NEGATIVE (Neg); KETONES,URINE TRACE mg/dl (Neg); LEUKOCYTE ESTERASE ,URINE NEGATIVE (Neg); NITRITES, URINE POSITIVE (Neg); OCCULT BLOOD,URINE NEGATIVE (Neg); PROTEIN,URINE NEGATIVE (Neg); UROBILINOGEN,URINE 0.2 E.U/dL (0.2-1.0)
[2022-09-14 15:20] LABS: UA COLLECTION TYPE CLN CATCH MIDSTREAM
[2022-09-14 15:21] LABS: CLARITY,URINE CLOUDY (Clear)
[2022-09-14 15:22] LABS: BACTERIA,URINE 4+ /HPF (Neg); MUCUS STRANDS NONE SEEN /LPF (Neg); RBC,URINE NONE SEEN /HPF (0-2); RENAL CELLS, URINE FEW /HPF; SQUAMOUS EPITHELIAL CELL,UR FEW /LPF (FEW); WBC CLUMPS,URINE FEW /HPF (NEGATIVE)
[2022-09-14] MEDS ORDERED: MECL-231 PO (16:09)
[2022-09-14] MEDS ORDERED: NITR100C6 PO (16:13)
[2022-09-14] MEDS ORDERED: nitrofuran monohydrate/nitrofuran macrocrysal 100 MG (MacroBID) capsule PO ONE (16:20)
[2022-09-14 16:38] VITALS: BP 98/57
== END 2022-09-14 16:40 | disposition home or self-care (01) ==
LOC: ER 10:14
DX: I95.1 Orthostatic hypotension (principal); R53.83 Other fatigue; N39.0 Urinary tract infection, site not specified; E86.0 Dehydration; Z79.899 Other long term (current) drug therapy
CPT/HCPCS: 80053; 81001; 85025; 87077; 87088; 87186; 93005; 96360; 99285; J7030; J8597

== ENCOUNTER 2022-09-21 12:51 | Emergency (ER) | payer MEDICARE ==
[~2022-09-21] VITALS: Ht 147.3 cm; Wt 59.1 kg
[~2022-09-21 12:51] MED LIST changes: +MECL-231 PO; +NITR100C6 PO
[2022-09-21] MEDS ORDERED: normal saline 1000ml 1,000 ML IV ONE ×2 (14:15→15:05)
[2022-09-21] MEDS ORDERED: ondansetron 4mg rapidly disintigrating tab PO ONE (14:30)
[2022-09-21] MEDS ORDERED: acetaminophen 325mg tablet PO ONE (14:30)
[2022-09-21 16:34] LABS: BASOPHILS % (AUTO) 0.3 % (0-1); EOSINOPHILS # (AUTO) 0.1 X10'3 (0-0.9); EOSINOPHILS % (AUTO) 1.4 % (0-6); HEMATOCRIT 29.8 % (35.0-45.0); HEMOGLOBIN 10.1 g/dl (12.0-16.0); LYMPHOCYTES # (AUTO) 0.2 X10'3 (1.1-4.8); LYMPHOCYTES % (AUTO) 2.2 % (21-51); MEAN CORPUSCULAR HEMOGLOBIN 34.3 PG (27.0-31.0); MEAN CORPUSCULAR HGB CONC 33.7 g/dL (33.0-36.5); MEAN CORPUSCULAR VOLUME 101.8 FL (78-98); MEAN PLATELET VOLUME 9.1 FL (7.4-10.4); MONOCYTES # (AUTO) 0.2 X10'3 (0-0.9); MONOCYTES % (AUTO) 1.7 % (2-12); NEUTROPHILS # (AUTO) 8.4 X10'3 (1.8-7.7); NEUTROPHILS % (AUTO) 94.4 % (42-75); PLATELET COUNT 157 X10'3 (140-440); RED BLOOD COUNT 2.93 X10'6 (4.20-5.60); RED CELL DISTRIBUTION WIDTH 18.1 % (11.5-14.5); WHITE BLOOD COUNT 8.9 X10'3 (4.5-11.0)
[2022-09-21 16:38] LABS: CLARITY,URINE SLIGHTLY CLOUDY (Clear); COLOR,URINE YELLOW (Yellow); GLUCOSE, URINE NEGATIVE (Neg); KETONES,URINE NEGATIVE (Neg); LEUKOCYTE ESTERASE ,URINE NEGATIVE (Neg); NITRITES, URINE POSITIVE (Neg); OCCULT BLOOD,URINE SMALL (Neg); PROTEIN,URINE NEGATIVE (Neg); UROBILINOGEN,URINE 0.2 E.U/dL (0.2-1.0)
[2022-09-21 16:40] LABS: UA COLLECTION TYPE CLN CATCH MIDSTREAM
[2022-09-21 16:44] LABS: MUCUS STRANDS FEW /LPF (Neg); SQUAMOUS EPITHELIAL CELL,UR MANY /LPF (FEW)
[2022-09-21 16:44] LABS: ALANINE AMINOTRANSFERASE 14 U/L (12-78); ALBUMIN 3.2 G/DL (3.4-5.0); ALBUMIN/GLOBULIN RATIO 1.1 (1.1-1.5); ALKALINE PHOSPHATASE 50 IU/L (46-116); ANION GAP 8 (8-16); ASPARTATE AMINO TRANSFERASE 21 U/L (10-37); BILIRUBIN,TOTAL 0.5 MG/DL (0.1-1.0); BLOOD UREA NITROGEN 13 MG/DL (7-18); BUN/CREATININE RATIO 20.6 (6.6-38.0); CALCIUM 7.5 MG/DL (8.5-10.1); CHLORIDE 104 MMOL/L (99-107); CREATININE 0.63 MG/DL (0.40-0.90); GLUCOSE 120 MG/DL (70-104); POTASSIUM 3.2 MMOL/L (3.5-5.1); SODIUM 136 MMOL/L (135-145); TOTAL CARBON DIOXIDE 24.1 MMOL/L (24-32); eGFR > 90 ML/MIN
[2022-09-21 16:47] LABS: BACTERIA,URINE 2+ /HPF (Neg); RBC,URINE 0-2 /HPF (0-2)
[2022-09-21] MEDS ORDERED: CEPH500C2 PO (16:49)
[2022-09-21] MEDS ORDERED: cephalexin 500mg capsule PO ONE (16:50)
[2022-09-21 17:01] VITALS: BP 127/54
== END 2022-09-21 17:03 | disposition home or self-care (01) ==
LOC: ER 12:53
DX: N39.0 Urinary tract infection, site not specified (principal); Z20.822 Contact with and (suspected) exposure to COVID-19; R31.9 Hematuria, unspecified; M19.90 Unspecified osteoarthritis, unspecified site; Z90.710 Acquired absence of both cervix and uterus
CPT/HCPCS: 36415; 71045; 80053; 81001; 85025; 87502; 87503; 87635; 96360; 96361; 99285; C9803; J7030

== ENCOUNTER 2024-02-15 14:11 | Emergency (ER) | payer MEDICARE, OTHER ==
[~2024-02-15] VITALS: Ht 147.3 cm; Wt 53.2 kg
[2024-02-15 19:45] LABS: HEMATOCRIT 33.7 % (35.0-45.0); HEMOGLOBIN 11.2 g/dl (12.0-16.0); MEAN CORPUSCULAR HGB CONC 33.1 g/dL (33.0-36.5); MEAN CORPUSCULAR VOLUME 96.4 FL (78-98); MEAN PLATELET VOLUME 9.2 FL (7.4-10.4); PLATELET COUNT 71 X10'3 (140-440); RED BLOOD COUNT 3.49 X10'6 (4.20-5.60); RED CELL DISTRIBUTION WIDTH 19.5 % (11.5-14.5); WHITE BLOOD COUNT 11.5 X10'3 (4.5-11.0)
[2024-02-15 19:52] LABS: ALANINE AMINOTRANSFERASE 26 U/L (12-78); ALBUMIN 4.2 G/DL (3.4-5.0); ALBUMIN/GLOBULIN RATIO 1.3 (1.1-1.5); ALKALINE PHOSPHATASE 71 IU/L (46-116); ANION GAP 6 (8-16); ASPARTATE AMINO TRANSFERASE 23 U/L (10-37); BILIRUBIN,TOTAL 0.7 MG/DL (0.1-1.0); BLOOD UREA NITROGEN 9 MG/DL (7-18); BUN/CREATININE RATIO 14.3 (10.0-20.0); CALCIUM 9.1 MG/DL (8.5-10.1); CHLORIDE 104 MMOL/L (99-107); CREATININE 0.63 MG/DL (0.40-0.90); GLUCOSE 92 MG/DL (70-104); SODIUM 141 MMOL/L (135-145); TOTAL CARBON DIOXIDE 30.6 MMOL/L (24-32); TOTAL PROTEIN 7.5 G/DL (6.4-8.2); eCRCL 44 ML/MIN; eGFR 90 ML/MIN
[2024-02-15 19:59] LABS: PRO BRAIN NATRIURETIC PEPTIDE 191 PG/ML (0-450)
[2024-02-15 20:51] LABS: NUCLEATED RED BLOOD CELLS 4 /100WBC (0-0); PLATELET ESTIMATE DECREASED; TOTAL CELLS COUNTED 100
[2024-02-15 20:53] LABS: ANISOCYTOSIS 2+; TEAR DROP CELLS 3+
[2024-02-15 20:54] LABS: ELLIPTOCYTES FEW
[2024-02-15 23:34] VITALS: BP 136/69; PULSE 67; RESP 18; TEMP 98.1; O2SAT 98
== END 2024-02-15 23:41 | disposition home or self-care (01) ==
LOC: ER 14:12
DX: R07.89 Other chest pain (principal); M19.90 Unspecified osteoarthritis, unspecified site; Z90.710 Acquired absence of both cervix and uterus
CPT/HCPCS: 36415; 71101; 80053; 83880; 84484; 85007; 85025; 93005; 99285

== ENCOUNTER 2024-09-18 08:08 | Emergency (ER) | payer MEDICARE, OTHER ==
[~2024-09-18] VITALS: Ht 147.3 cm; Wt 54.5 kg
[2024-09-18 08:12] VITALS: BP 99/66; PULSE 88; RESP 16; O2SAT 98
[2024-09-18 09:47] VITALS: TEMP 99.7
== END 2024-09-18 09:49 | disposition home or self-care (01) ==
LOC: ER 08:08
DX: J06.9 Acute upper respiratory infection, unspecified (principal); M19.90 Unspecified osteoarthritis, unspecified site; Z90.710 Acquired absence of both cervix and uterus; Z72.89 Other problems related to lifestyle; Z98.890 Other specified postprocedural states; Z79.899 Other long term (current) drug therapy
CPT/HCPCS: 99281

== ENCOUNTER 2025-03-03 08:50 | Emergency (ER) | payer MEDICARE, OTHER ==
[~2025-03-03] VITALS: Ht 147.3 cm; Wt 49.8 kg
[2025-03-03 08:53] VITALS: BP 121/41; PULSE 72; RESP 16; O2SAT 98
--- NOTE | 2025-03-03 09:23 | Physician Documentation ---
History of Present Illness ~ Chief Complaint: Mouth Pain Stated Complaint: SORES ON FACE Time Seen by MD: 09:07 OK to notify your PCP?: Yes Primary Medical Doctor: Dom soriano Source: patient Mode of Arrival: POV Exam Limitations: no limitations HPI 85-year-old female who is here due to sores on her lower and upper lip which started about eight days ago. Has been helps with history due to patient's memory loss. states they have been putting Neosporin on it. No other pre arrival treatment. [place]. She is on a medication that causes photosensitivity but states that she has never had this before and she has been on the medication now for over a year. Medication Reconciliation Allergies: Coded Allergies: No Known Allergies (Unverified , 09/13/21) Scheduled Ferrous Sulfate (Ferrous Sulfate), 1 TAB PO Q12H Meclizine HCl (Meclizine HCl), 1-2 TAB PO Q8H Meclizine Hcl (Meclizine Hcl), 1 TABLET PO TID Nitrofurantoin Monohyd/M-Cryst (Macrobid 100 mg Capsule), 1 CAP PO Q12H Ondansetron HCl (Ondansetron HCl), 1-2 TAB PO Q6H Ondansetron Hcl (Zofran), 1 TAB PO Q8H Pantoprazole Sodium (Pantoprazole Sodium), 40 MG PO BKF Pantoprazole Sodium (Protonix), 1 TAB PO DAILY Potassium Chloride (Klor-Con M20), 1 TAB PO DAILY Past Medical History Past Medical History: GI Bleed, Arthritis Past Surgical History: abdominal surgery, hysterectomy, orthopedic surgeries Alcohol Use: Occasionally Drug Use: none Lives with: Spouse Lives In: Home Occupation: retired Review of Systems All Other Systems at this time: Reviewed and Negative Physical Exam Vital Signs: Temperature: 98.3, Source: Oral, Heart Rate: 72, Respiratory Rate: 16, BP: 121/41, Pulse Oximetry: 98, Weight: 49.800 Oxygen Flow Rate: 0 Physical Exam General Appearance: Alert, WD/WN. NAD. HEENT: NCAT, PERRL, EOMI. Lower and upper lip, mostly lower lip, vesicular lesions with a fissure in the center of the lower lip with overlying bloody crust, the vesicular lesions have overlying some overlying lowry crusting. Neck: Supple, trachea midline. No cervical lymphadenopathy. Cardiovascular: RRR. No m/r/g. Lungs: CTAB. Breathing unlabored Extremities: Normal inspection. No edema. Skin: Warm/dry, normal color Neurological: Alert and oriented x4, normal gait. Psychiatric: Affect congruent with mood. Progress Results/Orders Results/Orders Vital Signs 03/03/25 08:53 Temp 98.3 Pulse 72 Resp 16 B/P (MAP) 121/41 Pulse Ox 98 O2 Flow Rate 0 Medical Decision Making Throat Diff Dx: Considerations: Include: Hand foot mouth disease, Herpetic stomatitis, Herpes simplex Additional Comment The lesions are vesicular most consistent with viral etiology however there is some overlying lowry crusting concerning for staph/impetigo thus I am going to cover for both with Bactroban ointment as well as Valtrex. I also recommend that patient stop using Neosporin because this can be irritating especially when used on the face. If any lesions start to spread upward towards I or patient develops fever, increasing swelling around the area or redness patient needs to return to the ER Departure Time of Disposition: 09:23 Disposition: 01 HOME / SELF CARE / HOMELESS Impression: Primary Impression: Impetigo Additional Impression: Lesion of mouth Condition: Stable Discharge Instructions: Impetigo, Adult Additional Instructions: The lesions most likely started out as viral as they appear vesicular most consistent with viral etiology however there is some overlying lowry crusting concerning for staph thus I am going to treat for both staph and viral. I also recommend that patient stop using Neosporin because this can be irritating especially when used on the face. If any lesions start to spread upward towards I or patient develops fever, increasing swelling around the area or redness patient needs to return to the ER Referrals: NO PRIMARY CARE PROVIDER (PCP) Prescriptions Valacyclovir HCl (Valtrex) 1,000 Mg Tablet 1 TAB PO Q8H for 7 Days, #21 TAB 0 Refills Prov: CAN CAMP 03/03/25 Mupirocin* (Bactroban*) 22 Gm Tube 1 APPLIC TOP Q8H for 7 Days, #22 GM apply to affected area(s) Prov: CAN CAMP 03/03/25 Education Educated: Patient Educated regarding: diagnosis, treatment, need for follow up Signature Scribe Signature: x Attestation: CAN Nascimento Mar 03, 2025 09:23
[2025-03-03] MEDS ORDERED: MUPI22OI30 TOP (09:24)
[2025-03-03] MEDS ORDERED: VALA10002 PO (09:24)
[2025-03-03 09:36] VITALS: TEMP 98.3
== END 2025-03-03 09:38 | disposition home or self-care (01) ==
LOC: ER 08:51
DX: L01.00 Impetigo, unspecified (principal); M19.90 Unspecified osteoarthritis, unspecified site; Z90.710 Acquired absence of both cervix and uterus
CPT/HCPCS: 99283

== ENCOUNTER 2025-03-26 14:42 | Emergency (ER) | payer MEDICARE, OTHER ==
[~2025-03-26] VITALS: Ht 157.5 cm; Wt 64.0 kg
[~2025-03-26 14:42] MED LIST changes: +VALA10002 PO
[2025-03-26 14:49] VITALS: TEMP 97.5
--- NOTE | 2025-03-26 15:26 | Physician Documentation ---
History of Present Illness ~ Chief Complaint: Flank Pain Stated Complaint: BACK PAIN Time Seen by MD: 15:26 Primary Medical Doctor: Dom soriano [facility] This is a 85-year-old female who appears much younger than her stated age. She presents due to two days of left flank pain. She denies urinary symptoms. 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 she denies chills or fever, chest pain or shortness of breath. No nausea, vomiting, diarrhea, constipation has been reported. Medication Reconciliation Allergies: Coded Allergies: No Known Allergies (Unverified , 03/26/25) Scheduled Atorvastatin Calcium (Atorvastatin Calcium), 1 TAB PO DAILY, (Reported) Donepezil Hcl (Donepezil Hcl), 1 TAB PO DAILY, (Reported) Scheduled PRN Docusate Sodium (Docusate Sodium), 1 CAP PO BID PRN for constipation, (Reported) Miscellaneous Medications Ruxolitinib Phosphate (Jakafi), (Reported) Discontinued Medications Ferrous Sulfate (Ferrous Sulfate), 1 TAB PO Q12H Discontinued Reason: patient no longer taking Meclizine HCl (Meclizine HCl), 1-2 TAB PO Q8H Discontinued Reason: patient no longer taking Meclizine Hcl (Meclizine Hcl), 1 TABLET PO TID Discontinued Reason: patient no longer taking Nitrofurantoin Monohyd/M-Cryst (Macrobid 100 mg Capsule), 1 CAP PO Q12H Discontinued Reason: patient no longer taking Ondansetron HCl (Ondansetron HCl), 1-2 TAB PO Q6H Discontinued Reason: patient no longer taking Ondansetron Hcl (Zofran), 1 TAB PO Q8H Discontinued Reason: completed med therapy Pantoprazole Sodium (Pantoprazole Sodium), 40 MG PO BKF Discontinued Reason: patient no longer taking Pantoprazole Sodium (Protonix), 1 TAB PO DAILY Discontinued Reason: patient no longer taking Potassium Chloride (Klor-Con M20), 1 TAB PO DAILY Discontinued Reason: patient no longer taking Valacyclovir HCl (Valtrex), 1 TAB PO Q8H Discontinued Reason: patient no longer taking Past Medical History Past Medical History: GI Bleed, Arthritis Past Surgical History: abdominal surgery, hysterectomy, orthopedic surgeries Alcohol Use: Occasionally Drug Use: none Lives with: Spouse Lives In: Home Occupation: retired Review of Systems ROS As stated above in the HPI, otherwise all systems are reviewed and negative. Physical Exam Vital Signs: Temperature: 97.5, Source: Temporal, Heart Rate: 60, Respiratory Rate: 16, BP: 130/37, Pulse Oximetry: 99, Weight: 64.000 Oxygen Flow Rate: 0 Physical Exam General: Alert, no apparent distress. Neck: Full range of motion. Respiratory: Lungs clear, no respiratory distress. Chest: No accessory muscle use. Back: TTP left thoracic spine and adjacent musculature. No crepitus or other bony abnormalities to palpation. Cardiovascular: Regular rate and rhythm, no murmurs. Gastrointestinal: Soft, nontender, nondistended. Bowels sounds present. Extremities: Normal range of motion, no deformity. Neurologic: Oriented x4. Psychiatric: Normal mood and affect. Skin: Normal color, warm and dry. No edema, no ecchymosis. Progress Results/Orders Results/Orders Orders - AMANDA UMANZOR CONTACT C[facility] MANAGER Ct Thoracic Spine (03/26/25 14:52) Ct Lumbar Spine (03/26/25 ) Completed Orders - AMANDA UMANZOR CONTACT C[facility] MANAGER Ct Thoracic Spine (03/26/25 14:52) Ct Lumbar Spine (03/26/25 ) Vital Signs 03/26/25 03/26/25 03/26/25 03/26/25 14:49 16:02 16:06 16:06 Temp 97.5 Pulse 60 48 48 Resp 16 17 16 16 B/P (MAP) 130/37 100/51 (67) 140/56 (84) Pulse Ox 99 100 99 O2 Flow Rate 0 0 0 EKG/XRAY/CT/US/VASC/MRI CT : Impression [address] [address] [place] Patient: WILMA ROSSI Medical Record: [id number] : 1940, Age: 85 Sex: Female Location: ER Patient Status: REG ER Service Date/Time: 03/26/25/ 1452 Ordering Physician: AMANDA UMANZOR CONTACT CENTER MANAGER Exam: CT THORACIC SPINE EXAM: CT CT THORACIC SPINE INDICATION: pain, hx "bone marrow cancer" COMPARISON: Lumbar spine CT 09/13/2021 TECHNIQUE: Multiple axial CT images of the thoracic spine were obtained using bone algorithm. Axial and coronal reformatting was done. Bone and soft tissue windows were reviewed. Radiation Dose Information: CT Dose: CTDI volume is 7.92 mGy. Dose-length product is 255.17 cm mGy*cm FINDINGS: 12 rib-bearing thoracic type vertebra. Mild straightening of the thoracic k yphosis. The vertebral body heights are maintained. Minimal dextroconvex curvature of the thoracic spine. Grade 1 anterolisthesis of T1 on T2. 2 by 1.5 by 1.5 cm Hemangioma within the T6 vertebral body. Chronic compression fracture of T12 with mild loss of superior vertebral body height and 4 mm retropulsion of the posterior superior T12 vertebral body into the spinal canal. Partially visualized anterior cervical fixation hardware. No significant spinal canal or neural foramina stenosis. The paraspinal muscles unremarkable. Ectasia of the descending intrathoracic aorta measuring up to 3.2 cm. Tnmh-pw-ayifdlxp atherosclerotic calcification of the visualized aorta. Heavy atherosclerotic calcification of the proximal left subclavian artery Small hiatal hernia. IMPRESSION: No evidence of acute traumatic fractures. Chronic compression fracture of T12. Hemangioma within The T6 vertebral body Electronically Signed by:JEANETTE TOBAR DO Date & Time: 03/26/25 160 Dictated by: JEANETTE TOBAR DO Dictation date and time: 03/26/25 1602 Primary Care Provider: NO PRIMARY CARE PROVIDER cc: AMANDA UMANZOR CONTACT CENTER MANAGER ~ [address] [address] [place] Patient: WILMA ROSSI Medical Record: [id number] [facility] 1940, Age: 85 Sex: Female Location: ER Patient Status: REG ER Service Date/Time: 03/26/25 Ordering Physician: AMANDA UMANZOR CONTACT CENTER MANAGER Exam: CT LUMBAR SPINE EXAM: CT CT LUMBAR SPINE INDICATION: pain, hx "bone marrow cancer" COMPARISON: CT LUMBAR SPINE on DOS: 09/13/21 TECHNIQUE: Multiple axial CT images of the lumbar spine were obtained using bone algorithm. Axial and coronal reformatting was done. Bone and soft tissue windows were reviewed. Radiation Dose Information: CT Dose: CTDI volume is 19.21 mGy. Dose-length product is 662 mGy*cm FINDINGS: 5 toe-gve-urkyyuc lumbar-type vertebrae. Normal alignment of the lumbar spine. Chronic compression fracture of the superior endplate of T12 with 4 mm retr opulsion of the posterior superior vertebral body into the spinal canal without significant spinal canal stenosis. Sclerotic focus over the superior and anterior L2 vertebral body, and right sacrum which may represent bone islands ; unchanged from 2020. Diffuse demineralization. No evidence of acute traumatic fractures. 2 mm retrolisthesis of L2 on L3 and L3 on L4. T12-L1 and L1-L2: No significant spinal canal or neural foramina stenosis. L2-L3: Mild posterior disc bulge without significant spinal canal or neural foramina stenosis. L3-L4: Posterior disc osteophyte complex causing mild spinal canal stenosis with njuf-pe-umqgexim bilateral neural foramina stenosis. L4-L5: Mild posterior disc bulge with ligamentum flavum hypertrophy causing moderate spinal canal stenosis with severe bilateral lateral recess narrowing. Injk-mq-nroyxtcs right with Moderate left-sided neural foramina stenosis. L5-S1: No significant spinal canal stenosis. Wfxm-zk-kxzdrwpf right and moderate left-sided neural foramina stenosis. Paraspinal muscles are unremarkable. Moderate atherosclerotic calcification of the aorta and bilateral iliacs. Moderate amount of fecal material within the partially visualized colon. IMPRESSION: No evidence of acute traumatic fractures. Chronic compression fracture of T12. Electronically Signed by:JEANETTE TOBAR DO Date & Time: 03/26/25 163 Dictated by: JEANETTE TOBAR DO Dictation date and time: 03/26/25 1634 Primary Care Provider: NO PRIMARY CARE PROVIDER cc: AMANDA UMANZOR NP ~ Medical Decision Making Additional Comment This is a well-appearing 85-year-old female who presented to the ER due to left flank pain. CT scan showed multiple chronic appearing abnormalities including a chronic T12 compression fracture. The patient denies any recent injury, but leigh s note that she has been moving furniture around on the patio. And, that her pain is worse with prolonged sitting, such as when she sews. She adamantly denies any concerns for chest pain, diaphoresis, fevers, or concerns beyond the left flank pain. Pain is not severe. Ultimately, her concern was found to be due to possibility of "bone cancer." She was reassured with her CT scan results. F/u was arranged with her PCP. Departure Time of Disposition: 16:50 Disposition: 01 HOME / SELF CARE / HOMELESS Impression: Primary Impression: Flank pain Additional Impressions: T12 compression fracture Constipation Discharge Instructions: Constipation, Adult, Flank Pain, Adult, Spinal Compression Fracture Additional Instructions: Continue taking the Metamucil and MiraLax. You may also add gbta-fuk-lbgrvlx Colace, which has a stool softener. I have reached out to your primary care provider and asked her to try and see you within the next couple of weeks. Please return immediately if your worse at any time: severe pain, fever over 101, or any other concerns that you are worse instead of better. Referrals: NO PRIMARY CARE PROVIDER (PCP) Education Educated: Patient, Family Educated regarding: diagnosis, treatment, prognosis, need for follow up Signature Scribe Signature: no scribe Attestation: The note accurately reflects work and decisions made by me.Amanda Tenorio NP 03/26/25 16:39 AMANDA UMANZOR NP Mar 26, 2025 15:25
--- NOTE | 2025-03-26 16:05 | RADIOLOGY REPORT ---
EXAM: CT CT THORACIC SPINE INDICATION: pain, hx "bone marrow cancer" COMPARISON: Lumbar spine CT 09/13/2021 TECHNIQUE: Multiple axial CT images of the thoracic spine were obtained using bone algorithm. Axial and coronal reformatting was done. Bone and soft tissue windows were reviewed. Radiation Dose Information: CT Dose: CTDI volume is 7.92 mGy. Dose-length product is 255.17 cm mGy*cm FINDINGS: 12 rib-bearing thoracic type vertebra. Mild straightening of the thoracic kyphosis. The vertebral bod y heights are maintained. Minimal dextroconvex curvature of the thoracic spine. Grade 1 anterolisthes is of T1 on T2. 2 by 1.5 by 1.5 cm Hemangioma within the T6 vertebral body. Chronic compression fract ure of T12 with mild loss of superior vertebral body height and 4 mm retropulsion of the posterior s uperior T12 vertebral body into the spinal canal. Partially visualized anterior cervical fixation rohit dware. No significant spinal canal or neural foramina stenosis. The paraspinal muscles unremarkable. Ectasia of the descending intrathoracic aorta measuring up to 3.2 cm. Ttbc-uf-mfplwavt atherosclerot ic calcification of the visualized aorta. Heavy atherosclerotic calcification of the proximal left mahan bclavian artery Small hiatal hernia. IMPRESSION: No evidence of acute traumatic fractures. Chronic compression fracture of T12. Hemangioma within The T6 vertebral body
[2025-03-26] MEDS ORDERED: DOCU-391 PO (16:09)
[2025-03-26] MEDS ORDERED: RUXO5TAB (16:09)
[2025-03-26] MEDS ORDERED: DONE-46 PO (16:09)
[2025-03-26] MEDS ORDERED: ATOR40TA72 PO (16:09)
--- NOTE | 2025-03-26 16:36 | RADIOLOGY REPORT ---
EXAM: CT CT LUMBAR SPINE INDICATION: pain, hx "bone marrow cancer" COMPARISON: CT LUMBAR SPINE on DOS: 09/13/21 TECHNIQUE: Multiple axial CT images of the lumbar spine were obtained using bone algorithm. Axial an d coronal reformatting was done. Bone and soft tissue windows were reviewed. Radiation Dose Information: CT Dose: CTDI volume is 19.21 mGy. Dose-length product is 662 mGy*cm FINDINGS: 5 zez-lmm-naddqgq lumbar-type vertebrae. Normal alignment of the lumbar spine. Chronic compression fr acture of the superior endplate of T12 with 4 mm retropulsion of the posterior superior vertebral bod y into the spinal canal without significant spinal canal stenosis. Sclerotic focus over the superior and anterior L2 vertebral body, and right sacrum which may represen t bone islands ; unchanged from 2020. Diffuse demineralization. No evidence of acute traumatic fractures. 2 mm retrolisthesis of L2 on L3 a nd L3 on L4. T12-L1 and L1-L2: No significant spinal canal or neural foramina stenosis. L2-L3: Mild posterior disc bulge without significant spinal canal or neural foramina stenosis. L3-L4: Posterior disc osteophyte complex causing mild spinal canal stenosis with otva-jx-svwubjkr francisco j ateral neural foramina stenosis. L4-L5: Mild posterior disc bulge with ligamentum flavum hypertrophy causing moderate spinal canal st enosis with severe bilateral lateral recess narrowing. Tzdy-yr-zhvqbcvq right with Moderate left-side d neural foramina stenosis. L5-S1: No significant spinal canal stenosis. Cmaz-ak-uvdddnbj right and moderate left-sided neural fo ramina stenosis. Paraspinal muscles are unremarkable. Moderate atherosclerotic calcification of the aorta and bilateral iliacs. Moderate amount of fecal ma terial within the partially visualized colon. IMPRESSION: No evidence of acute traumatic fractures. Chronic compression fracture of T12.
[2025-03-26 17:02] VITALS: BP 135/57; PULSE 51; RESP 16; O2SAT 95
== END 2025-03-26 17:10 | disposition home or self-care (01) ==
LOC: ER 14:43
DX: M48.54XA Collapsed vertebra, not elsewhere classified, thoracic region, initial encounter for fracture (principal); K59.00 Constipation, unspecified; M19.90 Unspecified osteoarthritis, unspecified site; Z79.899 Other long term (current) drug therapy; Z72.89 Other problems related to lifestyle; Z90.710 Acquired absence of both cervix and uterus; X58.XXXA Exposure to other specified factors, initial encounter; Y93.89 Activity, other specified; Y92.89 Other specified places as the place of occurrence of the external cause; Y99.8 Other external cause status
CPT/HCPCS: 72128; 72131; 99284

== ENCOUNTER 2025-05-31 05:58 | Day surgery (SDC) | payer MEDICARE, OTHER ==
[2025-05-30 11:44] LABS: MEAN PLATELET VOLUME 9.6 FL (7.4-10.4); RED CELL DISTRIBUTION WIDTH 19.5 % (11.5-14.5)
[2025-05-30 11:50] LABS: CREATININE 0.52 MG/DL (0.40-0.90); TOTAL CARBON DIOXIDE 30.0 MMOL/L (24-32); eGFR > 90 ML/MIN
[2025-05-30 11:54] LABS: APTT 26 SECONDS (22-32); INR 1.1 INR
[2025-05-30 12:33] LABS: BANDS% (MANUAL) 1.0 % (0-10); LYMPHOCYTES % (MANUAL) 9.0 % (21-51); METAMYLEOCYTES% (MANUAL) 1.0 % (0-0); MONOCYTES % (MANUAL) 8.0 % (2-12); NEUTROPHILS % (MANUAL) 81.0 % (42-75); PLATELET ESTIMATE DECREASED
[2025-05-30 15:22] LABS: NUCLEATED RED BLOOD CELLS 3 /100WBC (0-0)
[~2025-05-31] VITALS: Ht 147.3 cm; Wt 52.2 kg
[2025-05-31] VITALS (12 sets, daily range): BP systolic 109–144; BP diastolic 56–68; PULSE 52–62; RESP 11–19; TEMP 98.1; O2SAT 94–98
[~2025-05-31 05:58] MED LIST changes: +ATOR40TA72 PO; +DOCU-391 PO; +DONE-46 PO; -FERR324T4 PO; -MECL-226 PO; -MECL-231 PO; -NITR100C6 PO; -ONDA-103 PO; -ONDA4TAB6 PO; -PANT20TA18 PO; -PANT40TA54 PO; -POTA-197 PO; +RUXO5TAB; -VALA10002 PO; +normal saline 1000ml 1,000 ML IV SCH
--- NOTE | 2025-05-31 06:30 | ELECTROCARDIOGRAPH REPORT ---
[facility] Test Date: 2025-05-31 Test Time: 06:29:16 Pat Name: WILMA ROSSI Department: [facility] Patient ID: [facility]-[id number] Room: Gender: F Deli Cutter Slicer: AV : 1940 Requested By: TYRON MCNEIL Order Number: [id number] Reading MD: Dr. LUISITO Mcneil Measurements Intervals Ute Rate: 50 P: 5 MD: 119 QRS: 48 QRSD: 94 T: 5 QT: 463 QTc: 423 Interpretive Statements Sinus rhythm Borderline short MD interval Borderline low voltage, extremity leads Electronically Signed On 05-31-2025 18:02:[address] LUISITO Mcneil Please click the below link to view image of tracing.
[2025-05-31] MEDS ORDERED: PANT40TA54 PO (06:34)
[2025-05-31] MEDS ORDERED: ATOR10TA70 PO (06:34)
[2025-05-31] MEDS ORDERED: LACT-373 PO (06:34)
[2025-05-31] MEDS ORDERED: midazolam 1 mg/ML 2ml injection ONE ×2 (07:22→09:13)
[2025-05-31] MEDS ORDERED: LIDOcaine 1% W/epiNEPHrine 1:100,000 20ml vial ONE (07:23)
[2025-05-31] MEDS ORDERED: fentaNYL/PF 50MCG/1 ML 2ML syringe ONE (07:23)
[2025-05-31 08:06] LABS: RED CELL DISTRIBUTION WIDTH 19.6 % (11.5-14.5)
[2025-05-31 08:08] LABS: MEAN PLATELET VOLUME 10.4 FL (7.4-10.4)
[2025-05-31 08:53] LABS: EOSINOPHILS % (MANUAL) 1.0 % (0-6); LYMPHOCYTES % (MANUAL) 15.0 % (21-51); METAMYLEOCYTES% (MANUAL) 3.0 % (0-0); MONOCYTES % (MANUAL) 2.0 % (2-12); NEUTROPHILS % (MANUAL) 79.0 % (42-75); NUCLEATED RED BLOOD CELLS 3 /100WBC (0-0); PLATELET ESTIMATE DECREASED
[2025-05-31] MEDS ORDERED: HYDROcodone/acetaminophen 10/325mg tab PO PRN (10:20)
[2025-05-31] MEDS ORDERED: HYDROcodone/acetaminophen 5mg/325mg tablet PO PRN (10:20)
[2025-05-31] MEDS ORDERED: CEPH250T PO (10:52)
[2025-05-31] MEDS: vancomycin/NS 1 GM ADD-VANTAGE 250 ML IV ONE (11:22)
[2025-05-31] MEDS: normal saline 1000ml 1,000 ML IV SCH (11:23)
[2025-05-31] MEDS: ceFAZolin 2gm/dext,iso 50mL 50 ML IV ONE (11:48)
--- NOTE | 2025-05-31 12:28 | RADIOLOGY REPORT ---
DI CHEST,TWO VIEWS CLINICAL HISTORY: S/P PACEMAKER COMPARISON: CT CT THORACIC SPINE on DOS: 03/26/25, DI UNI RIBS WITH PA CHEST on DOS: 02/15/24, CHEST,SI NGLE VIEW on DOS: 09/21/22, CHEST,SINGLE VIEW on DOS: 07/22/22, CHEST,SINGLE VIEW on DOS: 10/25/21 TECHNIQUE: Frontal and lateral view of the chest was obtained FINDINGS: Lines and Tubes: Left-sided pacemaker. Lungs: No focal consolidation. Pleura: No effusion. No pneumothorax. Cardiomediastinal contours: Unremarkable Bones: No acute osseous abnormality. IMPRESSION: No acute cardiopulmonary disease.
--- NOTE | 2025-06-01 08:25 | CARDIOLOGY REPORT ---
DATE OF SERVICE: 05/31/2025 DICTATING PHYSICIAN: LUISITO Jorge MD PERMANENT PACEMAKER IMPLANTATION REPORT GENDER: Female. AGE: 85. HEIGHT: 147 cm. WEIGHT: 52 kg. BODY SURFACE AREA: 1.44 meters square. PRIMARY PHYSICIAN: Padmini Fernandes PA-C CARDIOLOGY: LUISITO Jorge MD INDICATION: The patient is an 85-year-old postmenopausal female with history of hyperlipidemia, carotid disease, exertional fatigue, sick sinus syndrome with tachybrady episodes. The patient's lowest heart rate back in 12/2023 was 43. She was managed medically and she also has episodes of SVT. She had a Zio monitor in 07/2024, lowest heart rate was 41 per minute and has episodes of SVT and the patient has been having progressively increasing tiredness, fatigue, and after discussing risks, benefits and alternative options, the patient prefers to proceed with pacemaker implantation. Risks, benefits and alternative options discussed, informed consent obtained. PREPROCEDURE DIAGNOSIS: Sick sinus syndrome with tachybrady episodes. POSTPROCEDURE DIAGNOSIS: Sick sinus syndrome with tachybrady episodes. PROCEDURES DONE: * Fluoroscopy. * AV sequential pacemaker implantation. * Conscious sedation 75 minutes. SURGEON: LUISITO Jorge MD, [facility] PHYSICIAN SPECIALIST SURGEON: None. ANESTHESIOLOGIST: None. ANESTHESIA: Conscious local anesthesia. COMPLICATIONS: None. DESCRIPTION OF PROCEDURE: Left infraclavicular area was prepped and draped in the usual fashion. . Two separate accesses were obtained to left subclavian vein using Seldinger technique, Subsequently two micropumcture wires were placed in left subclavian vein. Subsequently replaced with two J wires. A horizontal incision was placed in the left infraclavicular area. Using blunt dissection and electrocautery, pacemaker pocket was then fashioned. Two 7-Danish sheaths were advanced over the J-wires. Through one of them, RV lead was advanced to the RV apex, screwed into the RV apex. Appropriate pacing and sensing thresholds obtained. Sheath removed by peel-away technique. The lead anchored to the subcutaneous tissue with Ethibond. Through the second 7-Danish, atrial lead advanced to the right atrium and J wire was formed, screwed into the right atrial appendage. Appropriate pacing and sensing thresholds obtained. Sheath removed by peel-away technique and lead anchored to subcutaneous tissue with Ethibond. Pacemaker leads connected to appropriate sockets of the pulse generator. Set screws were tightened. Tug test performed. Pacemaker suspended in the pacemaker pocket. Pocket closed with continuous 0 Vicryl followed by interrupted 0 Vicryl, and third layer of interrupted 2-0 Vicryl applied. Skin approximated with bre. Pressure dressing applied. TECHNICAL INFORMATION: Device used was Medtronic, MRI compatible, Tracie PPM, model #W3DR01, serial #[id number], Medtronic left pectoral location serial #[id number], Medtronic, right atrial appendage, P-wave amplitude millivolt, 530 ohms of impedence 0.4 milliseconds. RV LEAD: Model #[id number] and 58 cm long serial #[id number], Medtronic, 05/30/2025, P-wave 530 ohms of impedance 0.4 milliseconds. IMPRESSION: An 85-year-old male with sick sinus syndrome with tachybrady episodes, underwent successful atrioventricular sequential pacemaker implantation with no complication. LUISITO Jorge MD TID: [id number] RECEIPT: [id number] JOSE ANTONIO/ANGELA/CARLA cc: Padmini LAURA
== END 2025-05-31 14:55 | disposition home or self-care (01) ==
LOC: SSTAY O 05:58
PROVIDERS: ATTEND Internal Medicine Cardiovascular Disease
DX: I49.5 Sick sinus syndrome (principal); R00.1 Bradycardia, unspecified; R42 Dizziness and giddiness; R53.83 Other fatigue; E78.5 Hyperlipidemia, unspecified; Z79.82 Long term (current) use of aspirin; Z79.891 Long term (current) use of opiate analgesic; Z79.899 Other long term (current) drug therapy; Z98.890 Other specified postprocedural states
CPT/HCPCS: 33208; 36415; 71046; 80048; 85025; 85610; 85730; 93005; 99152; 99153; A4565; C1785; C1898; J0690; J1200; J2250; J3010; J3373; J3490; J7030; Z7610; 85007

== ENCOUNTER 2025-06-12 15:17 | Outpatient (CLI) | payer MEDICARE, OTHER ==
[~2025-06-12 15:17] MED LIST changes: +LACT-373 PO; +PANT40TA54 PO; -normal saline 1000ml 1,000 ML IV SCH
--- NOTE | 2025-06-12 16:13 | RADIOLOGY REPORT ---
DI CHEST,TWO VIEWS CLINICAL HISTORY: PRESENCE OF A CARDIAC PACEMAKER COMPARISON: DI CHEST,TWO VIEWS on DOS: 05/31/25 TECHNIQUE: Frontal and lateral view of the chest was obtained FINDINGS: Lines and Tubes: None. Left-sided approach dual lead pacemaker terminating within right atrium and right ventricle. Lungs: No focal consolidation. Pleura: No effusion. No pneumothorax. Cardiomediastinal contours:Heart size is within normal limits with [id number] atherosclerotic calcification and uncoiling of the aorta. Bones: No acute osseous abnormality. Postsurgical changes of the right humeral head and glenoid. Partially visualized cervical fixation hardware. Right lateral humeral head chronic injury. IMPRESSION: No acute cardiopulmonary disease. Left-sided approach dual lead pacemaker terminating within right atrium and right ventricle. Visualized leads appear intact. Interval removal of the skin bre overlying the left lateral upper lung zone.
== END 2025-06-12 23:59 | disposition home or self-care (01) ==
LOC: RAD 15:17
PROVIDERS: ATTEND Internal Medicine Cardiovascular Disease
DX: I70.0 Atherosclerosis of aorta (principal); Z95.0 Presence of cardiac pacemaker
CPT/HCPCS: 71046